=== PATIENT | male | born 1990 | race Caucasian/White ===

== ENCOUNTER 2025-01-13 10:01 | Outpatient (CLI) | payer BC, SELFPAY ==
--- NOTE | ~2025-01-13 | XR_ITS ---
Cervical Spine: AP, lateral, open-mouth views Clinical History: Pain Findings: The normal lordotic curve is maintained. The vertebral bodies and posterior elements appea r intact. The intervertebral disc spaces are well maintained. Pre-vertebral soft tissues are unremar kable. Impression: No significant abnormality is seen. Reviewed, dictated and finalized at [facility]. Impression: No significant abnormality is seen.
--- OUTSIDE RECORDS SUMMARY | 2025-01-13 10:16 | XMS_ITS | Encounter Summary ---
Author Name [facility] [place] [facility] [place] Address [address] [place] [address] Care Team Providers Care Cowlman Name Role Phone ABEL OSHEA Primary Care Provider Vi solis Insurance Providers: All historical and current Section Date Range: From patient's date of to the date document was created. This section includes the names of all active insurance providers for the patient. Insurance Provider Type of Coverage Plan Name Start of Policy Coverage End of Policy Coverage Group Number Member ID Insurance Provider's Telephone Number Policy Huerta's Name Patient's Relationship to Policy Huerta [place] Aug 12, 2023 [id number] [phone] MATA ROGERS PATIENT [employer] [employer] PREFERRED PROVIDER [place]GANIZ[place] Aug 12, 2023 [id number] [phone] MATA ROGERS PATIENT [employer] PREFERRED PROVIDER [place]GANIZ[place] Aug 12, 2023 [id number] [phone] MATA ROGERS PATIENT [place] PREFERRED PROVIDER [place]GANIZ[place] Aug 12, 2023 [id number] [phone] MATA ROGERS PATIENT [facility] INTER NATIO NAL SIMMONS Apr 12, 2017 [id number] [phone] MATA ROGERS PATIENT [facility] RX [id number] PRESCRIPT ION INTER NATIO NAL SIMMONS Apr 12, 2017 [facility] [id number] [phone] MATA ROGERS PATIENT [facility] PRESCRIPT ION [place] Aug 12, 2023 [id number] [phone] MATA ROGERS PATIENT [facility] POINT OF SERVICE INTER NATIO NAL SIMMONS Apr 12, 2017 [id number] MATA ROGERS PATIENT Selected Encounter This section includes the information on record at [place] for the Encounter. Date/Time Encounter Type Encounter Description Reason Provider Source May 21, 2024 09:00 AM OFFICE O/P EST HI 40 MIN PRIMARY CARE/MEDICINE ICD-10-CM M54.2 Cervicalgia WHIT HENDERSON MA IHE Encounter Template Text not used by [place] Assessments - Encounter Diagnoses This section includes the primary and secondary diagnoses documented for the Encounter. Date/Time Primary/Secondary Diagnosis Diagnosis Name Provider Source May 21, 2024 04:43 PM PRIMARY Cervicalgia NALLELY HENDERSON [facility] Plan of Treatment: Future Appointments (+ 6 months) and Future Tests (+/- 45 days) The Plan of Treatment section includes future care activities for the patient from all [place] treatmentfacilities. This section includes future appointments and future orders which are active, pending or scheduled. Future Appointments This section includes appointments that were scheduled to occur 6 months from the date of the Encounter, up to a maximum of 20 appointments. The data comes from all [place] treatment facilities. Appointment Date/Time Appointment Type Appointme nt Facility Name Jul 23, 2024 08:00 AM AMBULATORY - NONE [facility] Vital Signs: All taken on the encounter date This section contains inpatient and outpatient Vital Signs collected on the date of the Encounter. Date/Time Temperature Pulse Blood Pressure Respiratory Rate SP02 Pain Height Weight Body Mass Index Source May 21, 2024 09:51 AM 98.4 68 122/74 20 95 0 [facility] Social History: Smoking Status (Most current) and Tobacco Use (All prior to encounter date) This section includes the most current, and the historical, smoking and tobacco- related health factors from the [place] facility where the Encounter took place. Current Smoking Status This section includes the most current smoking, or tobacco-related health factor, from the [place] facility where the Encounter took place. Date/Time Current Smoking Status Comment Facil ity January 10, 2024 09:00 AM VA-TOBACCO USER EVERY DAY [facility] Tobacco Use History This section includes a history of the smoking, or tobacco-related health factors, that were collected on or before the date of the Encounter. The data comes from the [place] facility where the Encounter took place. Date/Time Smoking Status/Tobacco Use Comment F acility January 10, 2024 09:00 AM VA-TOBACCO USE ADVICE [facility] January 10, 2024 09:00 AM VA-TOBACCO USE CAN COVERER NO [facility] January 10, 2024 09:00 AM VA-TOBACCO USE MED NO [facility] January 10, 2024 09:00 AM VA-TOBACCO USE WI 30 MIN OF WAKEUP [facility] January 10, 2024 09:00 AM VA-TOBACCO USER EVERY DAY [facility] Jun 18, 2021 11:30 AM ORYX ADMIT TOBACCO SCREEN YES [facility] Jun 18, 2021 11:30 AM ORYX DAILY TOBACCO CAN COVERER RECEIVED [facility] Jun 17, 2021 04:44 PM [place]-VAAES TOBACCO U SE CURRENT NRT ACCEPT [facility] Mar 03, 2018 01:44 PM CURRENT TOBACCO USER [facility] Mar 03, 2018 01:44 PM CURRENT TOBACCO US ER (NOT READY TO QUIT) [facility] Mar 03, 2018 01:44 PM SMOKELESS TOBACCO AMOUNT/LENGTH V15 1 can a day for the past 7-8 years [facility] Mar 03, 2018 01:44 PM TOBACCO CESSATION REFERRAL DECLINED [facility] Mar 03, 2018 01:44 PM TOBACCO MEDS OFFER ED BUT DECLINED [facility] Mar 03, 2018 01:44 PM TOBACCO USER OFFERED MEDS [facility] Oct 16, 2016 07:58 AM CURRENT TOBACCO USER [facility] Oct 16, 2016 07:58 AM TOBACCO MEDS OFFER ED BUT DECLINED [facility] Feb 25, 2015 01:27 PM LIFETIME NON-USER OF TOBACCO [facility] Encounter Notes: All associated encounter notes This section contains the clinical notes associated to the Encounter. Date/Time Encounter Note(s) Provider Source Jul 27, 2024 04:10 PM PHYSICIAN LETTERS: LOCAL TITLE: TEST RESULT GENERAL LETTER STL STANDARD TITLE: PHYSICIAN LETTERS DATE OF NOTE: JUL 27, 2024@16:10 ENTRY DATE: JUL 27, 2024@16:10:46 AUTHOR: EMANUEL HENDERSON EXP COSIGNER: URGENCY: STATUS: COMPLETED [facility] [address] [place] [address] JUL 27, 2024 LUKAS ROGERS [address] [place] [phone] Dear Lukas Rogers, I would like to update you on your recent test results. MRI of the cervical spine shows: Impression: No significant disc bulging, disc protrusion or spinal canal stenosis. Moderate narrowing of the right C4-5 and mild narrowing of the right C5-C6 neural foramina. If you are still having persistent symptoms that necessitated the MRI, please contact the clinic to schedule a follow-up. FUTURE APPOINTMENTS: No future appointments Sincerely, EMANUEL HENDERSON NURSE PRACTITIONER LUKAS ROGERS [facility]ID[facility] N [facility] May 21, 2024 09:54 AM PRIMARY CARE NOTE: LOCAL TITLE: PRIMARY CARE PROVIDER ESTABLISHED VISIT STL STANDARD TITLE: PRIMARY CARE NOTE DATE OF NOTE: MAY 21, 2024@09:54 ENTRY DATE: MAY 21, 2024@09:55:07 AUTHOR: EMANUEL HENDERSON EXP COSIGNER: URGENCY: STATUS: COMPLETED SAME DAY CLINIC Chief Complaint: Tremors in the back of the neck and head, described as spasms and brain zaps, along with difficulty sleeping for the past 2-3 weeks. HPI: Patient presents to the same day clinic with complaints of tremors/spasms in the back of the neck and head, described as feeling like the brain is being electrocuted. These symptoms have been occurring for the past 2-3 weeks, particularly when lying down at night, causing difficulty sleeping. He reports a diagnosis of costochondritis, after a gym injury over a year ago. He was referred for 10 weeks of Chiro. He was reportedly told by Chiro he had a bulging disc that needed that needed treatment which he completed. During the course of Chiropractic sessions, he started noticing that his lower extremity suddenly getting weak and buckling. Then he progressed to getting the cervical symptoms noted above. He also been experiencing headaches for the last 2-3 weeks, with no prior history. Describes headaches as pressure in the head, especially in the morning, with a foggy sensation and needle-like pain/sensation. Denies numbness or tingling in arms. But reports occasional shooting pains down lateral left arm, lasting for a second then subsiding. Currently not on any medication. Has tried ibuprofen for headaches without relief. Using sleep medications to help with sleep difficulties. PAST MEDICAL HISTORY: 1) Depressive disorder 2) Tobacco use ALLERGIES: Patient has answered NKA ALLERGY REVIEW: Allergy list reviewed and remained current. MEDICATIONS: Active and Recently Outpatient Medications (excluding Supplies): Active Outpatient Medications Status 1) NAPROXEN 500MG TAB TAKE ONE TABLET BY MOUTH TWICE ACTIVE DAILY NEEDED FOR INFLAMMATION TAKE WITH FOOD. REVIEW OF SYSTEMS: See HPI for pertinent positives. VITALS (most recent, as listed in the electronic record): Temperature: 98.4 F [36.9 C] (05/21/2024 09:51) BP: 122/74 (05/21/2024 09:51) Pulse: 68 (05/21/2024 09:51) Resp: 20 (05/21/2024 09:51) Pulse: 95% (05/21/2024 09:51) Pain: 0 (05/21/2024 09:51) Weight: Measurement DT WEIGHT LB(KG)[BMI] 01/10/2024 08:54 232.2(105.32)[32*] Physical Examination Findings: - General: Patient is alert and oriented. - Cardiovascular: Heart sounds are normal, no murmurs or gallops noted. - Respiratory: Lungs are clear to auscultation bilaterally. - Abdominal: Abdomen is soft, non-tender, and non-distended. - Cervical Spine: The outward appearance of the neck is normal, no erythema, or swelling noted. Localized tenderness on palpation. Full range of motion. Uniform sensation intact bilaterally. Positive Spurling test. - Skin: No rashes or lesions observed. ASSESSMENT/PLAN: #. Cervicalgia, - With symptoms of brain jolts, muscle spasms, neck stiffness/tenderness, occasional sharp pain down left arm. - Symptoms persistent throughout the day, but worse at night. - Symptoms started abruptly 3 months ago. - Has tried OTC topical, rest and Nsaids. - Imaging of the cervical spine on 04/03 shows: Impression The lateral masses of C1 and C2 are grossly aligned. No abnormal thickening of the prevertebral soft tissues. Visualized vertebral body heights and intervertebral disc spaces are normal. - With persistent symptoms refractory to conservative management, Will order cervical spine MRI. - OTC NSAIDs for pain and Flexeril for the spasm. #. Health Maintenance: -Reviewed recommended screening and Benefits. -Reviewed recommended immunizations. -Education provided on applicable Lifestyle modifications. -Reviewed Crisis hotline and encourage to us if needed. -Patient is aware of the 04/03 Veterans Crisis Line: , press 1 for Veterans. SUMMARY STATEMENT: Plan of care has been discussed with including expected therapeutic benefits and potential side effects of prescribed medication and treatments. verbalizes understanding and is in agreement with the plan of care. Patient was instructed to keep all scheduled appointments and contact regulatory affairs specialist for any additional problems. /yong/ EMANUEL HENDERSON NURSE PRACTITIONER Signed: 05/21/2024 16:48 EMANUEL HENDERSON [facility] May 21, 2024 09:52 AM NURSING NOTE: LOCAL TITLE: V15 PACT FACE TO FACE NOTE STL STANDARD TITLE: NURSING NOTE DATE OF NOTE: MAY 21, 2024@09:52 ENTRY DATE: MAY 21, 2024@09:52:18 AUTHOR: JEFFERY,JACQUELYNNE EXP COSIGNER: URGENCY: STATUS: COMPLETED Provider Visit: Patient Identifiers : Full Name Date of Reason for visit: Acute Care [facility] triage for head and neck Mode of Arrival: Ambulatory Allergy Review: Patient has answered NKA Allergy list reviewed and remains current. Recent Vital Signs: Temperature: 98.4 F [36.9 C] (05/21/2024 09:51) Pulse: 68 (05/21/2024 09:51) Respiration: 20 (05/21/2024 09:51) B/P: 122/74 (05/21/2024 09:51) Pain: 0 (05/21/2024 09:51) Wt: 232.2 lb [105.32 kg] (01/10/2024 08:54) Ht: 71 in [180.3 cm] (11/08/2016 10:21) BMI: 32.5 POX: 95% (05/21/2024 09:51) Would you like to discuss any personal problem, family problem, alcohol use, drug use, or a mental or emotional illness? No Contact provided Primary Care phone number and encouraged to call if any questions or concerns. Review that after hours nurse line [phone] and emergency room are available 04/03 for patient use. Contact verbalized good understanding. /yong/ ZEHRA MAYERSN, RN REGISTERED NURSE Signed: 05/21/2024 09:53 LUZ GIL [facility]
--- OUTSIDE RECORDS SUMMARY | 2025-01-13 10:16 | XMS_ITS | Encounter Summary ---
Author Name [facility] [place] [facility] [place] [facility] [place] Address [address] [place] [address] Care Team Providers Care Marine Consultant Name Role Phone ABEL OSHEA Primary Care [...] [place] Aug 12, 2023 [id number] [phone] MATA STORY PATIENT [employer] [place] PREFERRED PROVIDER ORGANIZAT ION (PPO) [place] Aug 12, 2023 [id number] [phone] MATA STORY PATIENT [employer] [employer] [place] PREFERRED PROVIDER ORGANIZAT ION (PPO) [place] Aug 12, 2023 [id number] [phone] MATA STORY PATIENT [place] PREFERRED PROVIDER ORGANIZAT ION (PP[place]) [place] Aug 12, 2023 [id number] [phone] MATA STORY PATIENT [facility] INTER NATIO NAL SIMMONS Apr 12, 2017 [id number] MATA STORY PATIENT [facility] RX ([id number] PRESCRIPT ION INTER NATIO NAL SIMMONS Apr 12, 2017 [facility] [id number] [phone] MATA STORY PATIENT [facility] RX PRESCRIPT ION [employer] Aug 12, 2023 [id number] [phone] MATA STORY PATIENT [facility] POINT OF SERVICE INTER NATIO NAL SIMMONS Apr 12, 2017 [id number] MATA STORY PATIENT Selected Encounter This section includes the information on record at [place] for the Encounter. Date/Time Encounter Type Encounter Description Reason Pro vider Source IHE Encounter Template Text not used by [facility]
--- OUTSIDE RECORDS SUMMARY | 2025-01-13 10:16 | XMS_ITS | Continuity of Care Document ---
Author Name [facility] Organization [facility] Care Team Providers Care National Secretary Name Role Phone [facility] Unavailable Unavailable Problems Combined list of problems from Department of Defense and Veterans Affairs facilities. It does not include entries that were removed or entered in error. Problem Status Onset Date Problem Type Date of Resolution Comments Source Pain in right upper arm Inactive 019 Condition DoD joint pain, localized in the knee Active Condition joint pain, localized in the knee: PLAN -T3 profile x 4 weeks (immobilizer and axillary crutches x 2 weeks) -HEP as outlined in note 2x10 BID each -In clinic TENS, ice, therex BIW -Medications as below for pain control. -F/u x 2 days with PCM if no sxs improvment for medication managment. DoD visit for: laboratory Inactive 013 Condition visit for: laboratory: LFTs, bilirubin elevated at last appt. Today bilirubin normal. LFTs still elevated but decreasing compared to last blood draw. SM sent to [facility] for RUQ U/S after last visit with normal results. As SM is asymptomatic and values are trending downward, will have SM return in one week for repeat labs to ensure they are continuing to decrease. Stressed not using supplements and increasing water intake. SM agreed to plan of care and verbalized understanding. DoD urinary symptoms Inactive 013 Condition urinary symptoms: LFTs elevated today. SM denies any other symptoms and has no jaundice or RUQ tenderness on exam. Will send for U/S for more detail. F/u after study completed. Will repeat LFTs in one week if no abnormalities on imaging. If still elevated or abnomal U/S, will send for GI consult. SM agreed to plan of care and verbalized understanding. DoD Other Physical Therapy Active 011 Condition Other Physical Therapy DoD ankle joint pain Inactive 011 Condition ankle joint pain DoD OVERWEIGHT Active Condition DoD visit for: screening exam depression Inactive Condition DoD Administrative Evaluation Services Inactive Condition DoD ADHD, COMBINED TYPE Active Condition DoD PSYCHIATRIC DIAGNOSIS OR CONDITION DEFERRED ON AXIS I Active Condition [facility] DEPRESSION Active Condition DoD TENDONITIS PATELLAR Active Condition [facility] nausea Inactive Condition [facility] visit for: follow-up exam Inactive Condition [facility] Central Auditory Function Test Nonspecific Abnormal Findings Active Condition [facility] visit for: administrative purpose Inactive Condition [facility] visit for: screening mental / developmental disorders Inactive Condition [facility] visit for: services physical demobilization Active Condition DoD KNEE SPRAIN Inactive Condition KNEE SPR AIN: Medial sprain vs CONTUSION. NO EFFUSION, NO LAXITY. RICE -- emphasized icing -- x 36 hours. Follow up at [facility] upon arrival there. Ice, Tylenol and Motrin are adequately controlling the pain at this time. Provided knee stabilizer (hinged brace locked in 30 degree bend). Also provided crutches for PARTIAL weight bearing. NO X-RAYS TAKEN... may consider imagery at next level of care if no improvement in weight-bearing ability within 48-72 hours. 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: [employer] [facility] visit for: ears / hearing exam Active Condition [facility] Patient Education - Medication Active Condition [facility] visit for: screening exam Inactive Condition DoD lower back pain Active Condition DoD insomnia Active Condition DoD LUMBAGO Active Condition DoD BACK STRAIN LUMBAR Inactive Condition DoD ANKLE SPRAIN RIGHT Inactive Condition [facility] patient activity at time of event - running Active Condition DoD patient function at time of event - activity Active Condition [facility] location of accident - training facility Inactive Condition DoD OVEREXERTION / STRENUOUS MOVEMENT Active Condition [facility] ANKLE SPRAIN ANTERIOR TALOFIBULAR LIGAMENT RIGHT Inactive Condition [facility] ILIOTIBIAL BAND FRICTION SYNDROME Active Condition [facility] visit for: services physical accession Active Condition [facility] visit for: screening exam pulmonary tuberculosis Inactive Condition [facility] visit for: services physical Active Condition DoD visit: ears/hearing exam for hearing conservation, treatment Inactive Condition [facility] 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 Diagnosis [facility] Diagnosis: ICD-10-CM M54.2 Cervicalgia Active Diagnosis [facility] Diagnosis: ICD-10-CM R20.2 Paresthesia of skin Active Diagnosis [facility] Diagnosis: ICD-10-CM R25.2 Cramp and spasm Active Diagnosis [facility] Diagnosis: ICD-10-CM Z72.0 Tobacco use Active Diagnosis [facility] Diagnosis: ICD-10-CM R07.89 Other chest pain Active Diagnosis [facility] Medications Combined list of outpatient medications from Department of [facility] and [facility] facilities.Medications provided include 1) outpatient medications from the last 15 months, and 2) patient-reported medications. Medication Details Route Status Patient Instructions Prescription Expires Prescription Number Last Dispense Date Ordering Provider Order Date Order Qty Source CYCLOBENZAP RINE HCL 10MG TAB TAKE ONE TABLET BY MOUTH THREE TIMES A DAY MAY CAUSE DROWSINE SS. DO NOT DRINK ALCOHOL WHILE TAKING THIS MEDICATI ON. ORAL 06/20/2024 [id number] Lyla HENDERSON N 2023 90 [facility] METHYLPREDN ISOLONE 4MG TAB DOSEPAK,21 TAKE TABLETS BY MOUTH DIRECTED FOR INFLAMMA TION TAKE 6 TABLETS BY MOUTH ON DAY ONE, THEN DECREASE BY ONE TABLET DAILY UNTIL GONE. TAKE WITH FOOD. ORAL 01/13/2024 [id number] MYESHA SAMUELS 2023 1 [facility] NAPROXEN 500MG TAB TAKE ONE TABLET BY MOUTH TWICE DAILY NEEDED FOR INFLAMMA TION TAKE WITH FOOD. ORAL 12/14/2024 [id number] MYESHA SAMUELS 2023 40 [facility] Allergies, Adverse Reactions, Alerts Combined list of allergies from Department of Defense and Veterans Affairs facilities. It does not include entries that were removed or entered in error. Substance Category Reaction Severity Reaction type Status Date Reported Comments Source No Known Allergies Drug allergy (disorder) active 06/26/2010 Felix Bran [place] Immunizations Combined list of available immunizations from the Department of Defense and Veterans Affairs facilities. Immunization Series Date Given Administered By Site Reaction Lot Number CVX Code Drug Registered Sales Assistant Status Comments Source COVID-19 ([employer]), MRNA, LNP-S, PF, 30 MCG/0.3 ML DOSE 1 2020 208 complet ed HISTORICA L INFORMATI ON - FROM OTHER REGISTRY, TABITHA [facility] anthrax vaccine 3 2017 NICHOLAS, MARILEE Castano [id number] [employer] ([facility]) complet ed anthrax vaccine DoD influenza, live, intranasal, quadrivalent 1 2012 [id number] [employer]. (MED) complet ed influenza , live, intranasa l, quadrival ent DoD anthrax vaccine 2 2011 [id number] [employer] ([facility]) complet ed anthrax vaccine DoD vaccinia (smallpox) vaccine 1 2011 [id number] (ARIANE) complet ed vaccinia (smallpox ) vaccine DoD anthrax vaccine 1 2011 [id number] [facility] [employer] ([facility]) complet ed anthrax vaccine DoD typhoid Vi capsular polysaccharid e vaccine 1 2011 [id number] Sanofi Pasteur (PMC) complet ed typhoid Vi capsular polysacch aride vaccine DoD Influenza, seasonal, injectable, preservative free 1 2011 [id number] Sanofi Pasteur (PMC) complet ed Influenza , seasonal, injectabl e, preservat eulalio free DoD hepatitis A vaccine, adult dosage 2 2011 [id number] [place], [place] [address] (SKB) complet ed hepatitis A vaccine, adult dosage DoD Influenza, seasonal, injectable, preservative free 1 2010 [id number] 140 Sanofi Pasteur (PMC) complet ed Influenza , seasonal, injectabl e, preservat eulalio free DoD measles, mumps and rubella virus vaccine 1 2009 UNK 03 Unknown (UNK) Not Given measles, mumps and rubella virus vaccine DoD influenza virus vaccine, split virus (incl. purified surface antigen)-reti red CODE 1 2009 [id number] 15 Unknown (UNK) complet ed influenza virus vaccine, split virus (incl. purified surface antigen)- retired CODE DoD varicella virus vaccine 1 2009 UNK 21 Unknown (UNK) Not Given varicella virus vaccine DoD hepatitis B vaccine, adult dosage 1 2009 UNK 43 Unknown (UNK) Not Given hepatitis B vaccine, adult dosage DoD hepatitis A vaccine, adult dosage 1 2009 [id number] 52 [employer] (SKB) complet ed hepatitis A vaccine, adult dosage DoD poliovirus vaccine, inactivated 1 2009 [id number] 10 Sanofi Pasteur (PMC) complet ed polioviru s vaccine, inactivat ed DoD meningococcal polysaccharid e (groups A, C, Y and W-135) diphtheria toxoid conjugate vaccine (MCV4P) 1 2009 [id number] 114 [employer] (SKB) complet ed meningoco ccal polysacch aride (groups A, C, Y and W-135) diphtheri a toxoid conjugate vaccine (MCV4P) DoD tetanus toxoid, reduced diphtheria toxoid, and acellular pertu is vaccine, adsorbed 1 2009 [id number] Sanofi Pasteur (PMC) complet ed tetanus toxoid, reduced diphtheri a toxoid, and acellular pertussis vaccine, adsorbed DoD Results Combined list of recent chemistry, hematology and other laboratory results from Department of Defense and Veterans Affairs, ranging from 15 months to all on record, depending upon the facility. Order Name Results Value Reference Range Date Interpretation Specimen Comments Source COMPREHEN SIVE METABOLIC PANEL CREATININE [MASS/VOLU ME] IN SERUM OR PLASMA 1.32 mg/dL 0.70 - 1.30 01/09 H Specimen Type: PLASMA Comment: No hemolysis noted. Ordering Provider: ABEL OSHEA Report Released Date/Time: January 10, 2024 09:41 AM Reporting Lab: [facility] [address] Performing Lab: [facility] [address] [facility] COMPREHEN SIVE METABOLIC PANEL UREA NITROGEN [MASS/VOLU ME] IN SERUM OR PLASMA 16.7 mg/dL 9.0 - 25.0 01/09 Specimen Type: PLASMA Comment: No hemolysis noted. Ordering Provider: ABEL OSHEA Report Released Date/Time: January 10, 2024 09:41 AM Reporting Lab: [facility] [place] [address] Performing Lab: [facility] [facility] COMPREHEN SIVE METABOLIC PANEL GLUCOSE [MASS/VOLU ME] IN SERUM OR PLASMA 99 mg/dL 72 - 99 01/09 Specimen Type: PLASMA Comment: No hemolysis noted. Ordering Provider: ABEL OSHEA Report Released Date/Time: January 10, 2024 09:41 AM Reporting Lab: [facility] [place] [address] Performing Lab: [facility] DIVISION COMPREHEN SIVE METABOLIC PANEL SODIUM [MOLES/VOL UME] IN SERUM OR PLASMA 141 meq/L 136 - 145 01/09 Specimen Type: PLASMA Comment: No hemolysis noted. Ordering Provider: ABEL OSHEA Report Released Date/Time: January 10, 2024 09:41 AM Reporting Lab: [facility] [place] [address] Performing Lab: [facility] DIVISION COMPREHEN SIVE METABOLIC PANEL POTASSIUM [MOLES/VOL UME] IN SERUM OR PLASMA 4.6 meq/L 3.5 - 5.0 01/09 Specimen Type: PLASMA Comment: No hemolysis noted. Ordering Provider: ABEL OSHEA Report Released Date/Time: January 10, 2024 09:41 AM Reporting Lab: [facility] [place] [address] Performing Lab: [facility] DIVISION COMPREHEN SIVE METABOLIC PANEL CHLORIDE [MOLES/VOL UME] IN SERUM OR PLASMA 105 meq/L 98 - 107 01/09 Specimen Type: PLASMA Comment: No hemolysis noted. Ordering Provider: ABEL OSHEA Report Released Date/Time: January 10, 2024 09:41 AM Reporting Lab: [facility] [place] [address] Performing Lab: [facility] [facility]ISION COMPREHEN SIVE METABOLIC PANEL CARBON DIOXIDE, TOTAL [MOLES/VOL UME] IN SERUM OR PLASMA 27 meq/L 22 - 31 01/09 Specimen Type: PLASMA Comment: No hemolysis noted. Ordering Provider: ABEL OSHEA Report Released Date/Time: January 10, 2024 09:41 AM Reporting Lab: [facility] [place] [address] Performing Lab: [facility] DIVISION COMPREHEN SIVE METABOLIC PANEL CALCIUM [MASS/VOLU ME] IN SERUM OR PLASMA 9.6 mg/dL 8.4 - 10.4 01/09 Specimen Type: PLASMA Comment: No hemolysis noted. Ordering Provider: ABEL OSHEA Report Released Date/Time: January 10, 2024 09:41 AM Reporting Lab: [facility] [place] [address] Performing Lab: [facility] DIVISION COMPREHEN SIVE METABOLIC PANEL PROTEIN [MASS/VOLU ME] IN SERUM OR PLASMA 7.5 g/dL 6.0 - 8.6 01/09 Specimen Type: PLASMA Comment: No hemolysis noted. Ordering Provider: ABEL OSHEA Report Released Date/Time: January 10, 2024 09:41 AM Reporting Lab: [facility] [place] [address] Performing Lab: [facility] DIVISION COMPREHEN SIVE METABOLIC PANEL ALBUMIN [MASS/VOLU ME] IN SERUM OR PLASMA 4.8 g/dL 3.4 - 5.0 01/09 Specimen Type: PLASMA Comment: No hemolysis noted. Ordering Provider: ABEL OSHEA Report Released Date/Time: January 10, 2024 09:41 AM Reporting Lab: [facility] [place] [address] Performing Lab: [facility] COMPREHEN SIVE METABOLIC PANEL BILIRUBIN. TOTAL [MASS/VOLU ME] IN SERUM OR PLASMA 0.6 mg/dL 0.2 - 1.2 01/09 Specimen Type: PLASMA Comment: No hemolysis noted. Ordering Provider: ABEL OSHEA Report Released Date/Time: January 10, 2024 09:41 AM Reporting Lab: [facility] [place] [address] Performing Lab: [facility] COMPREHEN SIVE METABOLIC PANEL ALKALINE PHOSPHATAS E [ENZYMATIC ACTIVITY/V OLUME] IN SERUM OR PLASMA 52 U/L 40 - 150 01/09 Specimen Type: PLASMA Comment: No hemolysis noted. Ordering Provider: ABEL OSHEA Report Released Date/Time: January 10, 2024 09:41 AM Reporting Lab: [facility] [place] [address] Performing Lab: [facility] COMPREHEN SIVE METABOLIC PANEL ASPARTATE AMINOTRANS FERASE [ENZYMATIC ACTIVITY/V OLUME] IN SERUM OR PLASMA 27 U/L 5 - 34 01/09 Specimen Type: PLASMA Comment: No hemolysis noted. Ordering Provider: ABEL OSHEA Report Released Date/Time: January 10, 2024 09:41 AM Reporting Lab: [facility] [place] [address] Performing Lab: [facility] DIVISION COMPREHEN SIVE METABOLIC PANEL ALANINE AMINOTRANS FERASE [ENZYMATIC ACTIVITY/V OLUME] IN SERUM OR PLASMA 40 U/L 8 - 40 01/09 Specimen Type: PLASMA Comment: No hemolysis noted. Ordering Provider: ABEL OSHEA Report Released Date/Time: January 10, 2024 09:41 AM Reporting Lab: [facility] [place] [address] Performing Lab: [facility] DIVISION COMPREHEN SIVE METABOLIC PANEL GLOMERULAR FILTRATION RATE/1.73 SQ M.PREDICTE D [VOLUME RATE/AREA] IN SERUM, PLASMA OR BLOOD BY CREATININE -BASED FORMULA (CKD-EPI 2020) 73.50 60 01/09 Specimen Type: PLASMA Comment: No hemolysis noted. Ordering Provider: ABEL OSHEA Report Released Date/Time: January 10, 2024 09:41 AM Reporting Lab: [facility] [place] [address] Performing Lab: [facility] DIVISION HIV COMBO FOURTH GENERATIO N (STL) HIV 1+2 AB+HIV1 P24 AG [PRESENCE] IN SERUM OR PLASMA BY IMMUNOASSA Y Nonreact eulalio 01/09 Specimen Type: SERUM No comment entered. Ordering Provider: ABEL OSHEA Report Released Date/Time: January 10, 2024 09:41 AM Reporting Lab: [facility] [address] [facility] [address] Performing Lab: [facility] [address] [facility] [id number] [place] [address] HEP C Ab HCV Ab (STL) HEPATITIS C VIRUS AB [PRESENCE] IN SERUM Nonreact eulalio 01/09 Specimen Type: SERUM No comment entered. Ordering Provider: ABEL OSHEA Report Released Date/Time: January 10, 2024 09:41 AM Reporting Lab: [address] [address] Performing Lab: [address] [id number] [place] [address] CBC LEUKOCYTES [#/VOLUME] IN BLOOD BY AUTOMATED COUNT 6.2 10*3/uL 3.6 - 11.2 01/09 Specimen Type: BLOOD No comment entered. Ordering Provider: ABEL OSHEA Report Released Date/Time: January 10, 2024 09:41 AM Reporting Lab: [facility] [place] [address] Performing Lab: [facility] CBC ERYTHROCYT ES [#/VOLUME] IN BLOOD BY AUTOMATED COUNT 5.90 10*6/uL 4.10 - 5.70 01/09 H Specimen Type: BLOOD No comment entered. Ordering Provider: ABEL OSHEA Report Released Date/Time: January 10, 2024 09:41 AM Reporting Lab: [facility] [place] [address] Performing Lab: [facility] CBC HEMOGLOBIN [MASS/VOLU ME] IN BLOOD 17.5 g/dL 13.1 - 16.8 01/09 H Specimen Type: BLOOD No comment entered. Ordering Provider: ABEL OSHEA Report Released Date/Time: January 10, 2024 09:41 AM Reporting Lab: [facility] [place] [address] Performing Lab: [facility] [facility] [phone] DIVISION CBC HEMATOCRIT [VOLUME FRACTION] OF BLOOD 49.9 38.2 - 48.4 01/09 H Specimen Type: BLOOD No comment entered. Ordering Provider: ABEL OSHEA Report Released Date/Time: January 10, 2024 09:41 AM Reporting Lab: [facility] [place] [address] Performing Lab: [facility] CBC MCV [ENTITIC VOLUME] BY AUTOMATED COUNT 84.6 fL 80.0 - 100.0 01/09 Specimen Type: BLOOD No comment entered. Ordering Provider: ABLE OSHEA Report Released Date/Time: January 10, 2024 09:41 AM Reporting Lab: [facility] [place] [address] Performing Lab: [facility] DIVISION CBC MCH [ENTITIC MASS] BY AUTOMATED COUNT 29.7 pg 27.0 - 34.0 01/09 Specimen Type: BLOOD No comment entered. Ordering Provider: ABEL OSHEA Report Released Date/Time: January 10, 2024 09:41 AM Reporting Lab: [facility] [place] [address] Performing Lab: [facility] DIVISION CBC MCHC [MASS/VOLU ME] BY AUTOMATED COUNT 35.1 g/dL 33.0 - 36.0 01/09 Specimen Type: BLOOD No comment entered. Ordering Provider: ABEL OSHEA Report Released Date/Time: January 10, 2024 09:41 AM Reporting Lab: [facility] [place] [address] Performing Lab: [facility] [place] [id number] DIVISION CBC PLATELETS [#/VOLUME] IN BLOOD BY AUTOMATED COUNT 222 10*3/uL 150 - 400 01/09 Specimen Type: BLOOD No comment entered. Ordering Provider: ABEL OSHEA Report Released Date/Time: January 10, 2024 09:41 AM Reporting Lab: [facility] [place] [address] Performing Lab: [facility] DIVISION CBC PLATELET MEAN VOLUME [ENTITIC VOLUME] IN BLOOD BY AUTOMATED COUNT 10.7 fL 7.5 - 11.2 01/09 Specimen Type: BLOOD No comment entered. Ordering Provider: ABEL OSHEA Report Released Date/Time: January 10, 2024 09:41 AM Reporting Lab: [facility] [place] [address] Performing Lab: [facility] DIVISION CBC ERYTHROCYT E DISTRIBUTI ON WIDTH [RATIO] BY AUTOMATED COUNT 11.9 11.8 - 15.1 01/09 Specimen Type: BLOOD No comment entered. Ordering Provider: ABEL OSHEA Report Released Date/Time: January 10, 2024 09:41 AM Reporting Lab: [facility] [place] [address] Performing Lab: [facility] DIVISION CBC LYMPHOCYTE S/100 LEUKOCYTES IN BLOOD BY AUTOMATED COUNT 25 01/09 Specimen Type: BLOOD No comment entered. Ordering Provider: ABEL OSHEA Report Released Date/Time: January 10, 2024 09:41 AM Reporting Lab: [facility] [place] [address] Performing Lab: [facility] [place] [id number] [place] [address] DIVISION CBC MONOCYTES/ 100 LEUKOCYTES IN BLOOD BY AUTOMATED COUNT 8 01/09 Specimen Type: BLOOD No comment entered. Ordering Provider: ABEL OSHEA Report Released Date/Time: January 10, 2024 09:41 AM Reporting Lab: [facility] [place] [address] Performing Lab: [facility] DIVISION CBC NEUTROPHIL S/100 LEUKOCYTES IN BLOOD BY AUTOMATED COUNT 64 01/09 Specimen Type: BLOOD No comment entered. Ordering Provider: ABEL OSHEA Report Released Date/Time: January 10, 2024 09:41 AM Reporting Lab: [facility] [place] [address] Performing Lab: [facility] DIVISION CBC EOSINOPHIL S/100 LEUKOCYTES IN BLOOD BY AUTOMATED COUNT 2 01/09 Specimen Type: BLOOD No comment entered. Ordering Provider: ABEL OSHEA Report Released Date/Time: January 10, 2024 09:41 AM Reporting Lab: [facility] [place] [address] Performing Lab: [facility] DIVISION CBC BASOPHILS/ 100 LEUKOCYTES IN BLOOD BY AUTOMATED COUNT 1 01/09 Specimen Type: BLOOD No comment entered. Ordering Provider: ABEL OSHEA Report Released Date/Time: January 10, 2024 09:41 AM Reporting Lab: [facility] [place] [address] Performing Lab: [facility] DIVISION CBC LYMPHOCYTE S [#/VOLUME] IN BLOOD BY AUTOMATED COUNT 1.55 10*3/uL 0.77 - 4.50 01/09 Specimen Type: BLOOD No comment entered. Ordering Provider: ABEL OSHEA Report Released Date/Time: January 10, 2024 09:41 AM Reporting Lab: [facility] [place] [address] Performing Lab: [facility] DIVISION CBC MONOCYTES [#/VOLUME] IN BLOOD BY AUTOMATED COUNT 0.50 10*3/uL 0.19 - 0.80 01/09 Specimen Type: BLOOD No comment entered. Ordering Provider: ABEL OSHEA Report Released Date/Time: January 10, 2024 09:41 AM Reporting Lab: [facility] [place] [address] Performing Lab: [facility] DIVISION CBC NEUTROPHIL S [#/VOLUME] IN BLOOD BY AUTOMATED COUNT 3.92 10*3/uL 2.10 - 8.00 01/09 Specimen Type: BLOOD No comment entered. Ordering Provider: ABEL OSHEA Report Released Date/Time: January 10, 2024 09:41 AM Reporting Lab: [facility] [place] [address] Performing Lab: [facility] DIVISION CBC EOSINOPHIL S [#/VOLUME] IN BLOOD BY AUTOMATED COUNT 0.13 10*3/uL 0.00 - 0.60 01/09 Specimen Type: BLOOD No comment entered. Ordering Provider: ABEL OSHEA Report Released Date/Time: January 10, 2024 09:41 AM Reporting Lab: [facility] [place] [address] Performing Lab: [facility] [address] [place] [address] CBC BASOPHILS [#/VOLUME] IN BLOOD BY AUTOMATED COUNT 0.04 10*3/uL 0.00 - 0.20 01/09 Specimen Type: BLOOD No comment entered. Ordering Provider: ABEL OSHEA Report Released Date/Time: January 10, 2024 09:41 AM Reporting Lab: [facility] [address] Performing Lab: [facility] [id number] Vital Signs Combined list of inpatient and outpatient Vital Signs from Department of [facility] and [facility], ranging from 12 months to all on record, depending upon the facility. Vital Sign Value Date Comments Source SYSTOLIC BLOOD PRESSURE 122 05/21/2024 09:51:07 [facility] DIASTOLIC BLOOD PRESSURE 74 05/21/2024 09:51:07 [facility] PULSE OXIMETRY 95 05/21/2024 09:51:07 [facility] PAIN 0 05/21/2024 09:51:07 [facility] TEMPERATURE 98.4 05/21/2024 09:51:07 [facility] PULSE 68 05/21/2024 09:51:07 [facility] RESPIRATION 20 05/21/2024 09:51:07 [facility] Encounters Combined list of: 1) Encounters from Department of Veterans Affairs facilities going backup to the last 18 months, not all [place] inpatient encounters are included; 2) Encounters from the Department of [facility] facilities going backup to 280 months. Location Location Details Encounter Type Encounter Number Reason For Visit Attending Provider ADM Date DC Date Status Disposition Source [place]) OUTPATIENT [id number] Hearing Test MARY PRUITT 06/02 Released w/o Limitations [place] ) [place] [place] [facility] [place] OUTPATIENT [id number] KEVIN PIERRE 06/05 Released w/o Limitations [place] [place] [facility] OUTPATIENT [id number] FRANCIA LINDSAY 06/05 [place]itations [place]PATIENT [id number] left leg ORESTES RAZO J 06/26 Released with Work/Duty Limitations [place] OUTPATIENT [id number] rt ankle CHRIS FIGUEROA M 09/08 Released with Work/Duty Limitations [place] [facility] [place]) OUTPATIENT [id number] R ANKLE INJURY X 2 WK-ALEXANDRA TIONAL INJURY X 12 HR/PN-S WELL-BR UISEJaleelBA CLIF VERMA 11/10 Released with Work/Duty Limitations [facility] [place] [facility] [place] [id number] ANKLE SPRAIN RIGHT IMANI CORTES 11/13 Released w/o Limitations [facility], [place] [facility] [place] [place] OUTPATIENT [id number] DANIA DYKES 11/14 Released w/o Limitations [facility] [place] [place] ) [facility] [place] [place] OUTPATIENT [id number] BRIDGETT GILMAN 11/16 Released w/o Limitations [facility] [place] [place] ) [facility] [place] [place] OUTPATIENT [id number] BRIDGETT GILMAN 11/21 Released w/o Limitations [facility] [employer] [place] [place] ) [facility], [place] Physical Therapy) OUTPATIENT [id number] BRIDGETT GILMAN 11/23 Released w/o Limitations [facility] [place] [place] ) [facility], [place]([facility]) TELE CONSULT [id number] Notes Entered by: WAYNE CORCORAN 13 Sep 2011 0939 ------- ------- ------- ------- -- Sick call LARY SEAMAN MADAI 09/13 [facility] [employer] [place] [place] Physical Therapy) OUTPATIENT [id number] BACK STRAIN LUMBAR PRUITT, 09/18 Released w/o Limitations [facility] [place] [place] ) [facility] [employer] [place], [place]([facility]) OUTPATIENT [id number] Lower back pain - YANIVLARY 09/27 Released w/o Limitations [facility], [employer] [place]) [facility], [place]) OUTPATIENT [id number] medicat ion managem ent JEANETTE BENTLEY 12/20 Released w/o Limitations [facility] [employer] [place] [facility], [place] OUTPATIENT [id number] Notes Entered by: JAEL SHI 02 Jun 2012 1428 ------- ------- ------- ------- -- pre dep JAEL SHI 06/02 Released w/o Limitations [facility] [employer] [place] [place] Theater Facility OUTPATIENT [id number] Theater Provider 11/06 Immediate Referral [facility] OUTPATIENT [id number] Theater Provider 11/07 Immediate Referral Theater Facilit y Theater Facility OUTPATIENT [id number] Theater Provider 11/13 Released w/o Limitations [facility] OUTPATIENT [id number] Theater Provider 02/14 Released with Work/Duty Limitations [facility] OUTPATIENT [id number] Theater Provider 02/14 Released with Work/Duty Limitations [facility] OUTPATIENT [id number] Theater Provider 02/16 Released w/o Limitations [facility] OUTPATIENT [id number] Theater Provider 02/19 Released w/o Limitations [facility] OUTPATIENT [id number] Theater Provider 02/24 Released w/o Limitations [facility] Theater Facility OUTPATIENT [id number] Theater Provider 03/18 Released w/o Limitations Theater Facilit y [place]) OUTPATIENT [id number] Notes Entered by: ALFRED MADRID 22 Mar 2013 1152 ------- ------- ------- ------- -- [facility] 2796 ALFRED MADRID 03/22 Released w/o Limitations [facility], [place]) Katy hendricks [place] TELE CONSULT [id number] Notes Entered by: KAM FUENTES 30 Mar 2013 0841 ------- ------- ------- ------- -- Yaniv/ ALANNA pereira of severe knee pain/ivan camarena. LARY SEAMAN 03/[address] [facility], [place] [facility], [place]) OUTPATIENT [id number] TAMIKA Mckeon 06/15 Released w/o Limitations [facility] [place] [place] [facility], [place]([facility]) OUTPATIENT [id number] [facility] JAEL Paniagua 06/25 Released w/o Limitations [facility], [place] ) [facility], [place]([facility]) TELE CONSULT [id number] Notes Entered by: LIVIER ACOSTAH E 01 Jul 2013 0631 ------- ------- ------- ------- -- zofran ENTERLINE, SIENA E 07/01 [facility], [place] [facility], [place], [place]) OUTPATIENT [id number] left kne pain ENTERLINE, SIENA E 07/07 Released w/o Limitations [facility], [place] [facility], [place], [place]([facility]) TELE CONSULT [id number] Notes Entered by: MAXI POST 09 Oct 2013 1434 ------- ------- ------- ------- -- Right ankle pain YANIVLARY Rueda MADAI 10/09 [facility], [place] [facility], [place] OUTPATIENT [id number] l/ knee pain ENTERLINE, SIENA E 11/20 Released w/o Limitations [facility] [place] [facility] [place] TELE CONSULT [id number] Notes Entered by: SIENA ACOSTA 16 Dec 2013 1014 ------- ------- ------- ------- -- MRI ENTERLINE, SIENA E 12/16 [facility] [employer] [place] [facility], [place] OUTPATIENT [id number] left knee pain/En terLARY Whalen 01/19 Released w/o Limitations [facility], [employer] [place] [facility], [facility] [place] [place] OUTPATIENT [id number] Notes Entered by: Martha LAYNE 19 Jan 2014 0929 ------- ------- ------- ------- -- LEFT KNEE ODETTE LAYNE 01/19 Released w/o Limitations [facility] [place] [facility], [facility] [place] OUTPATIENT [id number] flu like symptom s 2327 MARLEE RIOS 03/29 Released w/o Limitations [facility] [place] [facility] [place]) OUTPATIENT [id number] annual CHINTAN SELBY 08/16 Released w/o Limitations [facility] [place] [employer] OUTPATIENT [id number] MANDO COELHO 02/27 Released w/o Limitations [employer](F light Medicin e) [facility] [place]([facility]) OUTPATIENT [id number] Notes Entered by: TATUM VILLEGAS 25 Feb 2017 1140 ------- ------- ------- ------- -- MARIA DE JESUS SOLOMON 02/25 Released w/o Limitations [facility] [place]([facility]) [facility] [place]([facility]) OUTPATIENT [id number] Notes Entered by: LIV CAROLINA 25 Feb 2017 1626 ------- ------- ------- ------- -- NLC FRANCISCO J CASTRO 02/25 Released w/o Limitations [facility] [place]([facility]) [facility] [place]([facility]) OUTPATIENT [id number] Notes Entered by: DELVIS BROWN 23 Sep 2017 0932 ------- ------- ------- ------- -- NL UNIQUE CONTRERAS 09/23 Released w/o Limitations [facility] [place]([facility]) [facility] [place]([facility]) OUTPATIENT [id number] Notes Entered by: DELVIS BROWN 23 Jun 2018 0805 ------- ------- ------- ------- -- NLC SCOTT EMERSON 06/23 Released w/o Limitations [facility] [place]([facility]) Theater Facility OUTPATIENT [id number] Theater Provider 03/05 Released w/o Limitations Theater Facilit y [facility] EMERGENCY DEPT VISIT MOD MDM [id number] Diagnos is: ICD-10- CM R07.89 Other chest pain Pat SAMUELS 12/13 [facility] Encounter [id number] JEAN YANEZ 12/13 [facility] Outpatient Encounter [id number] Pat SAMUELS 12/13 [facility] OFFICE O/P NEW HI 60 MIN [id number] Diagnos is: ICD-10- CM Z72.0 Tobacco use OSHEA, ABEL L 01/09 [facility] Outpatient Encounter [id number] 01/12 [facility] Outpatient Encounter [id number] 01/12 [facility] Outpatient Encounter [id number] 03/09 [facility] Outpatient Encounter [id number] 03/09 [facility] OFF[facility] O/P EST SF 10 MIN [id number] Diagnos is: ICD-10- CM R25.2 Cramp and spasm Milli BAUTISTA 03/10 [facility] Outpatient Encounter [id number] 05/20 [facility] Outpatient Encounter [id number] 05/20 [facility] OFFICE O/P EST SF 10 MIN [id number] Diagnos is: ICD-10- CM R20.2 Paresth esia of skin Milli BAUTISTA 05/20 [facility] Outpatient Encounter [id number] 05/20 [facility] OFFICE O/P EST HI 40 MIN [id number] Diagnos is: ICD-10- CM M54.2 Cervica anaia FRED HENDERSON IDIMMA N 05/21 [facility] Outpatient Encounter [id number] 07/23 [facility] Outpatient Encounter [id number] 09/04 [facility] Outpatient Encounter [id number] NANDO GIL E 09/07 [facility] Outpatient Encounter [id number] 12/28 [facility] Outpatient Encounter [id number] 01/05 [facility] Outpatient Encounter [id number] GUME GAVIN 01/06 [facility] PH1 ASSMT&MGMT NQHP 5-10 [id number] Diagnos is: ICD-10- CM F33.8 Other recurre nt depress eulalio disorde rs GUME GAVIN 01/06 [facility] PSYTX W PT 30 MINUTES [id number] Diagnos is: ICD-10- CM F43.12 Post-tr aumatic stress disorde r, chronic LEI SHARPE E 01/07 [facility] Outpatient Encounter [id number] 01/08 [facility] Procedures Combined list of: 1) Procedures from Department of Veterans Affairs facilities going back up to thelast 18 months, not all [place] non-surgical procedures are included; 2) All procedures from the Department of Defense facilities. Procedure Procedure Type Code Date Perfomer Comments Sourc e ELECTROCARDIOGRAM, ROUTINE ECG WITH AT LEAST 12 LEADS; WITH INTERPRETATION AND REPORT 02/28/20 16 [facility] IMMUNIZATION ADMINISTRATION (INCLUDES PERCUTANEOUS, INTRADERMAL, SUBCUTANEOUS, OR INTRAMUSCULAR INJECTIONS); 1 VACCINE (SINGLE OR COMBINATION VACCINE/TOXOID) 06/23/20 18 [facility] ANTHRAX VACCINE, FOR SUBCUTANEOUS OR INTRAMUSCULAR USE 09/23/19 18 [facility] SCREENING TEST OF VISUAL ACUITY, QUANTITATIVE, BILATERAL 02/26/20 17 [facility] ANKLE ORTHOSIS, ANKLE GAUNTLET OR SIMILAR, WITH OR WITHOUT JOINTS, PREFABRICATED, [id number] 09/08/19 11 [facility] SKIN TEST; TUBERCULOSIS, INTRADERMAL 06/05/20 10 [facility] VIS FUNCT SCREEN,AUTOMAT/SEMI -AUTOMAT BILAT QUANT DETERM VISUAL ACUITY,OCULAR ALIGN,COLOR VISION,PSEUDOISOCHR OMAT PLATES,& FIELD VIS (MAY INC ALL/SOME SCRN DETERM FOR CONTRAST SENSITIV,VIS UND GLARE) 06/05/20 10 [facility] AUDIOMETRIC TESTING OF GROUPS 06/02/20 10 [facility] PSYCHOTHERAPY, 30 MINUTES WITH PATIENT 08/31/19 15 [facility] PSYCHOTHERAPY, 30 MINUTES WITH PATIENT WHEN PERFORMED WITH AN EVALUATION AND MANAGEMENT SERVICE (LIST SEPARATELY IN ADDITION TO THE CODE FOR PRIMARY PROCEDURE) 08/23/19 15 [facility] PURE TONE AUDIOMETRY (THRESHOLD), AUTOMATED; AIR ONLY 08/16/19 15 [facility] KNEE ORTHOSIS, ELASTIC WITH JOINTS, PREFABRICATED ITEM THAT HAS BEEN TRIMMED, BENT, MOLDED, ASSEMBLED, OR OTHERWISE CUSTOMIZED TO FIT A SPECIFIC PATIENT BY AN INDIVIDUAL WITH EXPERTISE 01/20/20 14 [facility] PSYCHOTHERAPY, 30 MINUTES WITH PATIENT 07/13/20 13 [facility] AUDIOMETRIC TESTING OF GROUPS 06/25/20 13 [facility] AUDIOMETRIC TESTING OF GROUPS 06/15/20 13 [facility] VACCINIA IMMUNE GLOBULIN, HUMAN, FOR INTRAMUSCULAR USE 06/03/20 12 [facility] EAR MOLD/INSERT, NOT DISPOSABLE, ANY TYPE 06/02/20 12 [facility] TYPHOID VACCINE, CAPSULAR POLYSACCHARIDE (VICPS), FOR INTRAMUSCULAR USE 05/01/20 12 [facility] MEDICATION THERAPY MGT SERVICE(S) PROVIDED,A PHARMACIST,LEX,FA CE-TO-FACE W PATIENT,WITH ASSESS & INTERVENE IF PROVIDED;EA ADDITION 15 MINUTES (LIST SEPARATELY IN ADDITION TO CODE FOR PRIM SERVICE) 12/21/19 12 [facility] THERAPEUTIC PROCEDURE(S), GROUP (2 OR MORE INDIVIDUALS) 09/18/19 12 [facility] HEPATITIS A VACCINE (HEPA), ADULT DOSAGE, FOR INTRAMUSCULAR USE 08/31/19 12 [facility] INFLUENZA VIRUS VACCINE, TRIVALENT (IIV3), SPLIT VIRUS, PRESERVATIVE FREE, 0.5 ML DOSAGE, FOR INTRAMUSCULAR USE 06/01/20 11 [facility] THERAPEUTIC PROCEDURE(S), GROUP (2 OR MORE INDIVIDUALS) 11/24/19 11 [facility] THERAPEUTIC PROCEDURE(S), GROUP (2 OR MORE INDIVIDUALS) 11/22/19 11 [facility] THERAPEUTIC PROCEDURE(S), GROUP (2 OR MORE INDIVIDUALS) 11/17/19 11 [facility] EXERCISE EQUIPMENT 11/15/19 11 [facility] PHYSICAL THERAPY EVALUATION 11/14/19 11 [facility] Immunization Administration One Vaccine Immunization Administration One Vaccine 01265 09/23/19 18 UNIQUE CONTRERAS [facility] Psychiatric Therapy Individual Approximately 20-30 Minutes 09/01/19 15 LEYLA POWER [facility] Threshold Audiogram (Pure Tone) Automated Threshold Audiogram (Pure Tone) Automated [id number] 08/16/19 15 CHINTAN SELBY [facility] Knee orthosis, elastic with joints, prefabricated item that has been trimmed, bent, molded, a embled, or otherwise customized to fit a specific patient by an individual with expertise 01/20/20 14 HUSSEIN WALL [facility] Audiometry Group Testing Audiometry Group Testing 99039 10/21/19 14 TAMIKA CABEZAS [facility] Psychiatric Therapy Individual Approximately 20-30 Minutes 07/21/20 13 DAMION KANG [facility] Audiometry Group Testing Audiometry Group Testing 38800 06/25/20 13 JAEL SHI [facility] Physical Therapy: ___ Se ion Segments, 15 Minutes Each Physical Therapy: ___ Session Segments, 15 Minutes Each [id number] 02/25/20 13 Theater Provider [facility] Modalities Cryotherapy Cold Packs Modalities Cryotherapy Cold Packs 90829 02/25/20 13 Theater Provider [facility] Physical Therapy: ___ Se ion Segments, 15 Minutes Each Physical Therapy: ___ Session Segments, 15 Minutes Each 08373 02/20/20 13 Theater Provider [facility] Modalities Cryotherapy Cold Packs Modalities Cryotherapy Cold Packs 18405 02/20/20 13 Theater Provider [facility] Physical Medicine Physical Therapy Evaluation Physical Medicine Physical Therapy Evaluation 90747 02/15/20 13 Theater Provider [facility] Ear mold/insert, not disposable, any type 06/02/20 12 YURIDIAJAEL Salazar [facility] Audiometry Group Testing Audiometry Group Testing 56251 06/02/20 12 [facility] By Pharmacist Each Additional 15 Min Medication Management By Pharmacist Each Additional 15 Min 12934 12/21/19 12 JEANETTE BENTLEY [id number] [facility] Med Management By Pharmacist Initial 15 Min New Patient Med Management By Pharmacist Initial 15 Min New Patient 66140 12/21/19 12 JEANETTE BENTLEY [facility] Physical Medicine - Group Physical Therapy Se ion Physical Medicine - Group Physical Therapy Session 78003 09/19/19 12 DAMION PRUITT [facility] Physical Medicine - Group Physical Therapy Se ion Physical Medicine - Group Physical Therapy Session 23123 11/24/19 11 BRIDGETT GILMAN [facility] Physical Medicine - Group Physical Therapy Se ion Physical Medicine - Group Physical Therapy Session 21699 11/23/19 11 BRIDGETT GILMAN [facility] Physical Medicine - Group Physical Therapy Se ion Physical Medicine - Group Physical Therapy Session 05192 11/18/19 11 BRIDGETT GILMAN [facility] Physical Medicine - Group Physical Therapy Se ion Physical Medicine - Group Physical Therapy Session 36546 11/16/19 11 DANIA DYKES [facility] Exercise equipment 11/16/19 11 DANIA DYKES [facility] Physical Medicine Physical Therapy Evaluation Physical Medicine Physical Therapy Evaluation 16474 11/14/19 11 IMANI CORTES [facility] Ankle orthosis, ankle gauntlet or similar, with or without joints, prefabricated, [id number] 09/08/19 11 CHRIS FIGUEROA size large applied to right ankle today in clinic [facility] Injection, penicillin G benzathine, up to 1,200,000 units 06/05/20 10 FRANCIA GILBERT [facility] Meningococcal Polysacch Diphtheria Toxoid Conjugate Vaccine 06/05/20 10 FRANCIA GILBERT [facility] Vaccines Viral Polio, Inactivated (Salk) Vaccines Viral Polio, Inactivated (Salk) 99518 06/05/20 10 OFELIA [facility] Hep A Vac Ped/Adol Dosage (Intramusc Use) 2 Dose Schedule Hep A Vac Ped/Adol Dosage (Intramusc Use) 2 Dose Schedule 33814 06/05/20 10 OFELIA [facility] Supervised Injection Intramuscular Antibiotic Supervised Injection Intramuscular Antibiotic 21474 06/05/20 10 OFELIA FRANCIA [facility] Venipuncture Venipuncture 08666 06/05/20 10 GILBERT, [facility] Tdap Vaccine Tdap Vaccine 71290 06/05/20 10 [place] [facility] Influenza Virus Vaccine Live Intranasal 06/05/20 10 [place] [facility] Immunization Administration Each Additional Vaccine 06/05/20 10 GILBERT FRANCIA [facility] Immunization Admin By Intranasal / Oral Route One Vaccine Immunization Admin By Intranasal / Oral Route One Vaccine 02087 06/05/20 10 GILBERT, [facility] Skin Test Anergy Tuberculin Intradermal Skin Test Anergy Tuberculin Intradermal 31416 06/05/20 10 GILBERT, FRANCIA [facility] Visual Function Screening Visual Function Screening 10975 06/05/20 10 KEVIN PIERRE [facility] Audiometry Group Testing Audiometry Group Testing 02821 06/02/20 10 MARY PRUITT [facility] Immunization Administration One Vaccine Immunization Administration One Vaccine 20522 SCOTT EMERSON [facility] Social History Combined list of available smoking, tobacco, and other social history from Department of Defense and Veterans Affairs facilities. Social History Type Response Date Comment [facility] e Tobacco smoking status NHIS VA-TOBACCO USER EVERY DAY 01/10/2024 [facility] History of tobacco use VA-TOBACCO USE WI 30 MIN OF WAKEUP 01/10/2024 [facility] History of tobacco use CHEWING TOBACCO PAST 30 DAYS 09/09/2022 [facility] History of tobacco use [facility] TOBACCO USE CURRENT NRT DECLINE 09/08/2022 [facility] History of tobacco use VA-TOBACCO USER EVERY DAY 09/07/[address] History of tobacco use ORYX ADMIT TOBACCO SCREEN YES 06/18/2021 [facility] History of tobacco use [facility] TOBACCO USE CURRENT NRT ACCEPT 06/17/2021 [facility] History of tobacco use TOBACCO USER OFFERED MEDS 03/03/2018 [facility] History of tobacco use CURRENT TOBACCO USER 10/16/2016 [facility] Sandra [facility] History of tobacco use QUIT TOBACCO IN THE LAST 12 MONTHS 04/24/2016 [facility] History of tobacco use LIFETIME NON-USER OF TOBACCO 02/25/2015 [facility] This section is an empty social history section. DoD Plan of Care List of future care activities from Department of Veterans [facility]. Additional future care activities may be listed in the Assessment and Plan section. Date/Time Care Activity Care Activity Detail Facili ty 01/19/2025 AMBULATORY - NEUROLOGY AMBULATORY - NEURO LOGY [facility]
== END 2025-01-13 10:02 | disposition home or self-care (01) ==
LOC: CHSIMG 10:04
PROVIDERS: PCP Family Medicine; Visit Provider Family Medicine
DX: M54.2 Cervicalgia (principal)
CPT/HCPCS: 72040